=== PATIENT | female | born 1940 | race Caucasian/White ===

== ENCOUNTER 2017-04-21 06:44 | Inpatient (IN) | payer OTHER ==
[2017-04-21] MEDS ORDERED: LORazepam 2 MG/ML INJ IVP ONE (06:56)
[2017-04-21] MEDS ORDERED: LORazepam 2 MG/ML INJ ONE (06:57)
[2017-04-21] MEDS ORDERED: OLANZapine 10 MG/2 ML VIAL ONE (07:00)
[2017-04-21] MEDS ORDERED: OLANZapine 10 MG/2 ML VIAL IM ONE (07:04)
[2017-04-21] MEDS ORDERED: NS 1,000 ML IV ONE (07:04)
--- NOTE | 2017-04-21 07:08 | EDPHY ---
HPI/HX/ROS/PE/MDM Narrative: CHIEF COMPLAINT: Altered mental status HPI: The patient is a 76-year-old female with a history of giant cell arteritis. She arrives by ambulance with her following shortly there afterwards. No history is obtainable from the patient secondary to altered mental status. The patient's states that the patient has been having a psychotic episode for at least the last day. During this episode, she apparently has 3 personalities, one who is extremely agitated and one which is "robotic and helpless." She has had these episodes before and it was felt to be secondary to prednisone, although she has never been hospitalized or seen a physician for this problem. The patient's tells me that her current altered mental status secondary to prednisone, but the patient has been on prednisone since February. There has been no new medications other than medication for oral thrush, which the patient's states his Keflex. Per EMS, the patient was speaking constantly about devils on route to the hospital and was requiring restraint. REVIEW OF SYSTEMS: Aside from elements discussed in the HPI, a comprehensive 10-point review of systems was reviewed and is negative. PMH: Trying cell arteritis, history of breast cancer, history of mastectomy. SOCIAL HISTORY: . No history of alcohol or drug use. PHYSICAL EXAM: General:Patient is extremely agitated requiring restraint by 2 nurses. She is alternately attempting to bite the nurses followed by periods of tongue rolling and yelling gibberish. ENT:Eyes are normal to inspection. ENT inspection normal. Neck: Normal inspection. Full range of motion. Respiratory:No respiratory distress. Breath sounds normal bilaterally. Cardiovascular: Regular rate and rhythm. Strong peripheral pulses. Normal cap refill. Abdomen:The abdomen is nontender to palpation. There are no peritoneal signs. There are normal bowel sounds. Back: Normal to inspection. No tenderness to palpation. Skin: Normal color. No rash. Warm and dry. Extremities: Normal appearance. Full range of motion. Neuro: No gross motor deficits. ED Course: CTH: Negative for acute disease. Accepted by hosptalist service ([facility]) for admission. VSS stable on three re-evaluations. MDM: This patient presents with acute psychosis. Her suggests prednisone as the cause, and I think this is the most likely etiology, but I am concerned that the patient has been on this medication for two months, so it seems unusual this would start now. I suspect the patient likely has an undiagnosed mental health issue that may be precipitated by the medication. Her workup is negative except for WBC which is elevated. There is no history of infectious symptoms. UA is still pending. This may be secondary to agitation. The patient was treated with 5mg IM Zyprexa, and quickly resolved. I think CVA, tumor, hyponatremia, meningitis unlikely. This could represent atypical seizure, or mental health disorder. - Data Points Laboratory Results: Laboratory Results 04/21/17 07:05 04/21/17 07:05 04/21/17 04/21/17 04/21/17 08:30 07:05 07:05 WBC 20.15 10^3/uL H 10^3/uL (3.80-9.50) RBC 3.96 10^6/uL L 10^6/uL (4.18-5.33) Hgb 12.4 g/dL L g/dL (12.6-16.3) Hct 35.9 % L % (38.0-47.0) MCV 90.7 fL fL (81.5-99.8) MCH 31.3 pg pg (27.9-34.1) MCHC 34.5 g/dL g/dL (32.4-36.7) RDW 16.6 % H % (11.5-15.2) Plt Count 242 10^3/uL 10^3/uL (150-400) MPV 8.8 fL fL (8.7-11.7) Neut % (Auto) Not Reported Lymph % (Auto) Not Reported Gray % (Auto) Not Reported Eos % (Auto) Not Reported Baso % (Auto) Not Reported Nucleat RBC Rel Count 0.1 % % (0.0-0.2) Absolute Neuts (auto) Not Reported Absolute Lymphs (auto) Not Reported Absolute Monos (auto) Not Reported Absolute Eos (auto) Not Reported Absolute Basos (auto) Not Reported Absolute Nucleated RBC 0.02 10^3/uL H 10^3/uL (0-0.01) Immature Gran % Not Reported Seg Neutrophils % 75 % % Band Neutrophils % 13 % % Lymphocytes % 7 % % Monocytes % 5 % % Immature Gran # Not Reported Absolute Seg Neuts 15.11 10^/uL H 10^/uL (1.70-6.50) Absolute Band Neuts 2.62 10^3/uL H 10^3/uL (0.00-0.70) Absolute Lymphocytes 1.41 10^3/uL 10^3/uL (1.00-3.00) Absolute Monocytes 1.01 10^3/uL H 10^3/uL (0.30-0.80) Platelet Estimate ADEQUATE (ADEQ) Polychromasia 1+ H Sodium 130 mEq/L L mEq/L (134-144) Potassium 4.0 mEq/L mEq/L (3.5-5.2) Chloride 95 mEq/L L mEq/L (97-110) Carbon Dioxide 27 mEq/l mEq/l (22-31) Anion Gap 8 mEq/L mEq/L (8-16) BUN 25 mg/dL H mg/dL (7-23) Creatinine 0.8 mg/dL mg/dL (0.6-1.0) Estimated GFR > 60 Glucose 95 mg/dL mg/dL (70-100) Calcium 9.4 mg/dL mg/dL (8.5-10.4) Total Bilirubin 0.4 mg/dL mg/dL (0.1-1.4) Conjugated Bilirubin 0.0 mg/dL mg/dL (0.0-0.5) Unconjugated Bilirubin 0.4 mg/dL mg/dL (0.0-1.1) AST 31 IU/L IU/L (14-46) ALT 57 IU/L H IU/L (9-52) Alkaline Phosphatase 56 IU/L IU/L (38-126) Creatine Kinase 44 IU/L IU/L (0-156) Troponin I 0.024 ng/mL ng/mL (0.000-0.034) Total Protein 6.1 g/dL L g/dL (6.3-8.2) Albumin 3.4 g/dL L g/dL (3.5-5.0) TSH 1.580 uIU/mL uIU/mL (0.465-4.680) Urine Color Pending Urine Appearance Pending Urine pH Pending Ur Specific [place] Pending Urine Protein Pending Urine Ketones Pending Urine Blood Pending Urine Nitrate Pending Urine Bilirubin Pending Urine Urobilinogen Pending Ur Leukocyte Esterase Pending Urine Glucose Pending Urine Opiates Screen NEGATIVE (NEGATIVE) Urine Barbiturates NEGATIVE (NEGATIVE) Ur Phencyclidine Scrn NEGATIVE (NEGATIVE) Ur Amphetamine Screen NEGATIVE (NEGATIVE) U Benzodiazepines Scrn NEGATIVE (NEGATIVE) Urine Cocaine Screen NEGATIVE (NEGATIVE) U Marijuana (THC) Screen NEGATIVE (NEGATIVE) Medications Given: Discontinued Medications Sodium Chloride (Ns) 1,000 mls @ 0 mls/hr IV EDNOW ONE; Wide Open PRN Reason: Protocol Stop: 04/21/17 07:05 Last Admin: 04/21/17 07:32 Dose: 1,000 mls Lorazepam (Ativan Injection) 1 mg IVP EDNOW ONE Stop: 04/21/17 06:57 Last Admin: 04/21/17 06:56 Dose: 1 mg Olanzapine (Zyprexa Im Injection) 5 mg IM EDNOW ONE Stop: 04/21/17 07:05 Last Admin: 04/21/17 07:07 Dose: 5 mg General Time Seen by Provider: 04/21/17 06:58 Initial Vital Signs: Initial Vital Signs Temperature (C) 36.9 C 04/21/17 07:00 Heart Rate 89 04/21/17 07:00 Respiratory Rate 26 H 04/21/17 07:00 Blood Pressure 165/51 H 04/21/17 07:00 O2 Sat (%) 99 04/21/17 07:00 O2 Delivery Mode Room Air Allergies/Adverse Reactions: codeine Allergy (Verified 04/21/17 07:27) lisinopril Allergy (Verified 04/21/17 07:27) Sulfa (Sulfonamide Antibiotics) Allergy (Verified 04/21/17 07:27) ANY NARCOTICS Allergy (Uncoded 04/18/11 12:19) Home Medications: Medication Instructions Recorded ATENOLOL [Atenolol 50 mg] 0 mg PO DAILY 04/18/11 Losartan Potassium 0 mg PO 04/18/11 AMITRIPTYLINE HCL 04/21/17 Atorvastatin Calcium 04/21/17 Prednisone 04/21/17 Departure - Departure Referrals: JIAN RICKS [Other] - As per Instructions
[2017-04-21 07:23] LABS: ABSOLUTE NRBC COUNT 0.02 10^3/uL (0-0.01); ADD DIFF? YES; ADD MORPH? NO; ADD SCAN? NO; ATYPICAL LYMPHOCYTE FLAG 10 (0-99); FRAGMENT RBC FLAG 0 (0-99); HEMATOCRIT 35.9 % (38.0-47.0); HEMOGLOBIN 12.4 g/dL (12.6-16.3); LEFT SHIFT FLG 50 (0-99); LIPEMIA HEMOLYSIS FLAG 90 (0-99); MEAN CELL HEMOGLOBIN 31.3 pg (27.9-34.1); MEAN CELL HEMOGLOBIN CONCENTR. 34.5 g/dL (32.4-36.7); MEAN CELL VOLUME 90.7 fL (81.5-99.8); MEAN PLATELET VOLUME 8.8 fL (8.7-11.7); NRBC-AUTO% 0.1 % (0.0-0.2); PLATELET CLUMPS FLAG 0 (0-99); PLATELET COUNT 242 10^3/uL (150-400); RED BLOOD CELL COUNT 3.96 10^6/uL (4.18-5.33); RED CELL DISTRIBUTION WIDTH 16.6 % (11.5-15.2)
[2017-04-21 07:35] LABS: ALANINE AMINOTRANSFERASE 57 IU/L (9-52); ALBUMIN 3.4 g/dL (3.5-5.0); ALKALINE PHOSPHATASE 56 IU/L (38-126); ANION GAP 8 mEq/L (8-16); ASPARTATE AMINOTRANSFERASE 31 IU/L (14-46); BILIRUBIN,TOTAL 0.4 mg/dL (0.1-1.4); BILIRUBIN-UNCONJUGATED 0.4 mg/dL (0.0-1.1); CALCIUM 9.4 mg/dL (8.5-10.4); CARBON DIOXIDE 27 mEq/l (22-31); CHLORIDE 95 mEq/L (97-110); CREATININE 0.8 mg/dL (0.6-1.0); GLOMERULAR FILTRATION RATE > 60; GLUCOSE 95 mg/dL (70-100); SODIUM 130 mEq/L (134-144); TOTAL PROTEIN 6.1 g/dL (6.3-8.2)
[2017-04-21 07:47] LABS: TROPONIN I 0.024 ng/mL (0.000-0.034)
[2017-04-21 07:48] LABS: PLATELET ESTIMATE ADEQUATE (ADEQ); POLYCHROMASIA 1+
[2017-04-21 09:12] LABS: COLOR PALE YELLOW; LEUKOCYTE ESTERASE,URINE NEGATIVE (NEGATIVE); NITRITE,URINE NEGATIVE (NEGATIVE)
[2017-04-21 09:20] LABS: BACTERIA TRACE /hpf (NONE SEEN); RBC,URINE 15-25 /hpf (0-3)
[2017-04-21] MEDS ORDERED: ONDANSETRON DISINTEGRATING 4 MG TAB PO PRN (12:29)
[2017-04-21] MEDS ORDERED: ONDANSETRON 4 MG/2 ML VIAL IVP PRN (12:29)
[2017-04-21] MEDS ORDERED: OLANZapine 5 MG TAB PO PRN (13:52)
[2017-04-21] MEDS ORDERED: OLANZapine 10 MG/2 ML VIAL IV PRN (13:54)
--- NOTE | 2017-04-21 14:14 | GHP ---
[f rep st] HISTORY AND PHYSICAL DATE OF ADMISSION: 04/21/2017 CHIEF COMPLAINT: Altered mental status. HISTORY OF PRESENT ILLNESS: The patient is a 76-year-old white female, who was in good health until a couple of months ago when she began getting severe headaches. She was diagnosed with giant cell arteritis by temporal artery biopsy on approximately March 08. She was treated with prednisone 60 mg daily for most of the month of March (total of 28 days). During that time, her sleep became somewhat disrupted. She would wake up every 2 or 3 hours, and get up and eat something. Her appetite increased. She would nap during the day. She continued to be able to function at her usual high level. She did have rapid resolution of her symptoms once the prednisone was started, and her reports that her CRP, which was elevated, returned to normal fairly quickly. About 10 days ago, she switched from 60 mg daily down to 50 mg daily. Since that time, she has been having brief attacks of altered mental status characterized by 10 or 15 minutes where she appeared to be hallucinating, saying things like "something is trying to control me." She would fight back against these forces and say things like "you don't know what this is, you can' t understand this," while describing this to her . She would ask her , "is that real or is that not real?" Then, she would be completely lucid in between these episodes. Her describes this as a switch going on and off, "like a [place] thing." She actually would get a little bit agitated and anxious prior to the onset of these symptoms, but they would often disappear very rapidly for no obvious reason. She would often go 1 or 2 days between episodes when they first started 10 days ago. She did not have any episodes at all 2 days ago, but then yesterday had 3 episodes, each lasting in the 10-20 minute range. Her had been giving her Tylenol PM to help her sleep at night, and he discontinued that 3 days ago. Then, this morning at 4:30 a.m., he heard her calling and found her in the family room wedged between a recliner and the wall. He was able to move her to the sofa, but while doing so, she had "one of these sessions." She was hitting him and much more agitated than she had been in the past. This episode did not resolve quickly and after 45 minutes, he called 911. The episode persisted throughout the ambulance ride and only resolved after she received Zyprexa in the emergency department. This episode today then lasted over 2 hours. Her also reports that since going down to the 50 mg dose over the past 10 days, she is unable to shower or dress herself, and often does not know how to eat or wash her hands unless he cues her and tells her what to do. He will tell her to turn the water on and grab some soap, and then rub her hands like this. When eating, she will stare at her food, and he will instruct her to slat pickler a utensil and eat, and then she is able to do so. He describes, over the last 10 days, 3 different personalities. The first one is normal. The second personality is "a psychotic session with a wicked laugh," and the third personality is a "helpless robot" where he can instruct her to raise her arms so that he can help her put a coat on, but she just stands there with the arms raised until he gives her the instruction. He denies that she has any prior history of depression, anxiety, or any other mental status issues in the past. At her baseline, she can walk and take care of all of her own needs. Her says that they regularly go for 45-60 minute walks for exercise without any problem. She has been struggling with thrush for the past couple of weeks and was treated with nystatin mouthwash, but that was not working. Several days ago, she was told to take a fluconazole tablet and repeat it after 48 hours if necessary. She took her first dose 3 days ago and her second dose yesterday. The thrush appears to have cleared. PAST MEDICAL HISTORY: 1. Hypertension. 2. Breast cancer, status post mastectomy 2 years ago. 3. Hyperlipidemia. MEDICATIONS: Amlodipine 2.5 mg 3 times daily, prednisone 50 mg daily, anastrozole 1 mg daily, aspirin 81 mg daily, atorvastatin 10 mg daily, losartan 100 mg daily, fluconazole 150 mg twice in the last few days as outlined above, but this is not something she has been taking regularly. SOCIAL HISTORY: She lives at home with her . They have a son who lives with his family in [place]. She does not smoke. She rarely drinks alcohol. She goes for 45-50 minute walks daily when healthy. FAMILY HISTORY: Her mother at an advanced age. Her father after a heart condition that sounds like it was secondary to some sort of trauma at a relatively young age. REVIEW OF SYSTEMS: This is unobtainable from the patient, as she is not completely coherent at the time of my exam. PHYSICAL EXAMINATION: GENERAL: She is a well-developed white female, who appears her stated age, lying comfortably in bed with her eyes closed. She easily opens them when I ask her name and engages in conversation. She is oriented to location (hospital), date, month, and year. She tells me she thinks it is Saturday (in fact, it is Saturday), but other than that seems oriented. She does not know how she got to the hospital and does not remember the events of this morning. She is able to tell me her blood pressure medications and is able to tell me she should be at [facility] (which is where she has insurance), but in the next sentence tells me when I ask if she is having any pain, "no, but I have some aching because I was just fighting all of them off." VITAL SIGNS: Blood pressure was 165/51 on presentation, but now 131/82. Heart rate was 89 when she presented to the ER, but now is 56. Oxygen saturation is 99% on room air. She is afebrile. HEENT: Eyes: Pupils are pinpoint. She follows directions, and her extraocular muscles are intact. Throat, mouth, and oropharynx are benign. There is no evidence of thrush. There is no erythema in the back of the throat. NECK: Supple, without adenopathy. She easily moves her neck in all directions, without any pain. Carotids are 2+ bilaterally. LUNGS: Clear. BACK: No CVA tenderness. HEART: Regular, without murmur. ABDOMEN: Soft and nontender, without masses. Normoactive bowel sounds. EXTREMITIES: 2+ pitting edema to the mid [place]ehan bilaterally. Her skin is warm and dry. Her feet have no open sores. She has 2 + pulses in her feet bilaterally. NEUROLOGIC: She is alert and reasonably oriented as above, although she does still talk about some sort of "them" who appear to be assaulting or bothering her. 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 DATABASE: Head CT scan shows extensive periventricular and deep hemispheric white matter changes, and some stable generalized atrophy compared to a few years ago, but no acute abnormality. Her WBC is elevated at 20,000, hemoglobin 12.4, hematocrit 35.9, and platelets are 242,000. Her sodium is low at 130, but her other electrolytes are normal. Her creatinine is normal at 0.8, and glucose is 95. Urinalysis shows 15-25 RBCs, 3-5 WBCs, trace bacteria, and 2+ glucose. Urine toxicology screen is negative. IMPRESSION: 1. Altered mental status, likely secondary to several weeks of poor sleep combined with prednisone. Recent Diflucan might be playing a small role, but she was clearly having episodes of delirium or psychosis before the Diflucan was started, and she has only taken 2 doses of Diflucan. There is no obvious source for infection to explain her altered mental status, and her CT scan is negative. She does not have meningeal symptoms that would suggest any sort of neurologic infection. The prednisone could be masking an infection. If the symptoms continue despite reduction of the prednisone, we could try to consider an MRI to help rule out HSV encephalitis or another type of encephalitis. Right now, I doubt she would cooperate with an MRI, and I do not have any great reason to believe that in the absence of fever or rapid severe worsening, that this is an infectious etiology. 2. Elevated white blood cell count, probably secondary to high-dose prednisone for the last several weeks. 3. Hyponatremia, mild, and I do not think this is clinically contributing to her current picture. I suspect it is secondary to prednisone and stress. 4. Recent oral thrush. A thorough oropharyngeal exam today by me did not reveal any thrush whatsoever. There is certainly no reason to continue the Diflucan. 5. Giant cell arteritis, diagnosed about 6 weeks ago. At this point, it would be prudent to reduce the prednisone more rapidly. She had her last dose yesterday of 50 mg. I am inclined to hold it and make a day-by-day decision about resuming it. When resuming, I would probably choose a 20 mg dose and see if she tolerates a relatively rapid taper after that. Certainly, if the headache returns or if inflammatory markers increase, she could be treated with methotrexate or another immune system modulator. At this point, it does not appear that high-dose prednisone is a reasonable option going forward. 6. DNR status. She is full code. 7. Insurance status. She is a [facility] patient, and it may be that if she requires continued hospitalization, they will want her transferred to their hospital tomorrow. 8. History of breast cancer, on anastrozole. I will continue that daily medication for now. 9. History of hypertension. She is not hypertensive now. I will leave an order in the chart for some p.r.n. losartan, since she has apparently tolerated that medicine for some time. I will hold the amlodipine unless we really need an additional med, since she does have some fairly significant edema. 10. Hematuria. Mild. I do not think this is contributing to her current altered mental status. Will order urine culture. Suggest outpatient follow-up if this persists. /[id number]/MODL MTDD
[2017-04-21] MEDS: ACETAMINOPHEN 325 MG TAB PO PRN (23:31)
[2017-04-22] MEDS: cefTRIAXone 2 GM in D5W 50 ML IV SCH ×2 (01:04→08:50)
[2017-04-22 05:31] LABS: ABSOLUTE NRBC COUNT 0.07 10^3/uL (0-0.01); ADD DIFF? YES; ADD MORPH? NO; ADD SCAN? NO; ATYPICAL LYMPHOCYTE FLAG 0 (0-99); FRAGMENT RBC FLAG 0 (0-99); HEMATOCRIT 37.8 % (38.0-47.0); HEMOGLOBIN 12.9 g/dL (12.6-16.3); LEFT SHIFT FLG 40 (0-99); LIPEMIA HEMOLYSIS FLAG 90 (0-99); MEAN CELL HEMOGLOBIN 31.6 pg (27.9-34.1); MEAN CELL HEMOGLOBIN CONCENTR. 34.1 g/dL (32.4-36.7); MEAN CELL VOLUME 92.6 fL (81.5-99.8); MEAN PLATELET VOLUME 9.3 fL (8.7-11.7); NRBC-AUTO% 0.4 % (0.0-0.2); PLATELET CLUMPS FLAG 0 (0-99); PLATELET COUNT 224 10^3/uL (150-400); RED BLOOD CELL COUNT 4.08 10^6/uL (4.18-5.33); RED CELL DISTRIBUTION WIDTH 17.6 % (11.5-15.2)
[2017-04-22 05:58] LABS: ALANINE AMINOTRANSFERASE 49 IU/L (9-52); ALBUMIN 2.9 g/dL (3.5-5.0); ALKALINE PHOSPHATASE 57 IU/L (38-126); ANION GAP 8 mEq/L (8-16); ASPARTATE AMINOTRANSFERASE 27 IU/L (14-46); BILIRUBIN,TOTAL 0.5 mg/dL (0.1-1.4); CALCIUM 8.4 mg/dL (8.5-10.4); CARBON DIOXIDE 25 mEq/l (22-31); CHLORIDE 96 mEq/L (97-110); GLOMERULAR FILTRATION RATE 54; GLUCOSE 101 mg/dL (70-100); POTASSIUM 3.8 mEq/L (3.5-5.2); SODIUM 129 mEq/L (134-144); TOTAL PROTEIN 5.1 g/dL (6.3-8.2)
[2017-04-22 06:14] LABS: SEDIMENTATION RATE 10 MM/HR (0-30)
[2017-04-22 06:26] LABS: PLATELET ESTIMATE ADEQUATE (ADEQ)
[2017-04-22 06:29] LABS: POLYCHROMASIA 1+
[2017-04-22] MEDS: LOSARTAN POTASSIUM 50 MG TAB PO SCH (08:49)
[2017-04-22] MEDS: ATORVASTATIN CALCIUM 10 MG TAB PO SCH (08:49)
[2017-04-22] MEDS: ANASTROZOLE 1 MG TAB PO SCH (08:49)
[2017-04-22] MEDS: ACETAMINOPHEN 325 MG TAB PO PRN ×3 (08:50→20:08)
[2017-04-22] MEDS: ASPIRIN EC 81 MG TAB PO SCH (09:25)
[2017-04-22] MEDS: ENOXAPARIN 30 MG/0.3 ML SYR SC SCH (09:51)
[2017-04-22] MEDS: D5W IV SCH ×3 (10:29→21:14)
[2017-04-22] MEDS: ACYCLOVIR IV SCH ×3 (10:29→21:14)
[2017-04-22] MEDS: AMPICILLIN SODIUM 2 GM in NS 100 ML IV SCH ×2 (10:31→16:08)
[2017-04-22 10:35] LABS: INR 1.05 (0.83-1.16); PROTIME(PATIENT) 13.6 SEC (12.0-15.0)
--- NOTE | 2017-04-22 11:27 | HOSPPROG ---
Hospitalist Progress Note Assessment/Plan: 76-year-old with a history of doses of temporal arteritis is admitted with altered mental status. She has been on high dose steroid for 6 weeks and altered mental status with the last 10 days # altered mental status, fever over night. This is concerning for a central process possible malignancy or infectious. Discussed with Dr. Sam. * LP * MRI with and without * Continue antibiotic antivirals until infection ruled out with LP * Continue supportive care * Await blood cultures # history of breast cancer, she is 2 years out and new presumed remission. Check MRI to rule out malignancy # temporal arteritis currently on prednisone. Patient is immune compromise due to this and will continue lower dose, she could likely tolerate 40 mg daily. * Repeat sed rate * Decrease to 40 mg daily tomorrow # hypertension, stable # dyslipidemia # DVT prophylaxis, hold Lovenox today for LP. disposition: pt with fever and AMS. will need greater than 2 midnight for eval and treatment Subjective: Patient confused when I saw her however her symptoms wax and wane she was more oriented later on. She denies any pain, no cough no urinary symptoms Objective: Vital Signs Temp Pulse Resp BP Pulse Ox 38.2 C 113 H 16 126/96 H 91 L 04/22/17 07:54 04/22/17 07:54 04/22/17 07:54 04/22/17 07:54 04/22/17 07:54 Laboratory Results 04/22/17 04:40 04/22/17 04:40 04/21/17 04/22/17 04/23/17 05:59 05:59 05:59 Intake Total 1640 Output Total 2100 Balance -460 PT 13.6 SEC (12.0-15.0) 04/22/17 10:10 INR 1.05 (0.83-1.16) 04/22/17 10:10 - Physical Exam Constitutional: appears nourished, not in pain Eyes: PERRL, EOMI Ears, Nose, Mouth, Throat: moist mucous membranes Cardiovascular: regular rate and rhythym, no murmur, rub, or gallop Respiratory: no respiratory distress, no rales or rhonchi, clear to auscultation Gastrointestinal: normoactive bowel sounds, soft, non-tender abdomen Genitourinary: no bladder fullness Skin: warm, no rashes or abrasions Neurologic: No AAOx3 Psychiatric: anxious ICD10 Worksheet Patient Problems: Problems Problem Status Onset Fever Acute
--- NOTE | 2017-04-22 11:39 | GCON ---
[f rep st] CONSULTATION INFECTIOUS DISEASES CONSULTATION DATE OF CONSULTATION: 04/22/2017 REFERRING PHYSICIAN: Shelbi Briones MD REASON FOR CONSULTATION: Fever and altered mental status. HISTORY OF PRESENT ILLNESS: The patient is a 76-year-old female with a recent diagnosis of temporal arteritis, who has been on high-dose prednisone for approximately 6 weeks, whom I have seeing in consultation for fever and altered mental status. The patient is a patient in the [facility] and developed pain over her temporal regions, which ultimately was diagnosed as temporal arteritis by biopsy. She was started on prednisone 60 mg orally daily approximately 6 weeks ago. Approximately 10 days ago, the prednisone was tapered to 50 mg orally daily. Her notes that her C-reactive protein had decreased significantly with prednisone therapy. Around the time her prednisone was tapered to 50 mg, the patient developed intermittent episodes of confusion and agitation. Her describes her as having periods where she would be confused with paranoid ideations. She thought people were trying to get her and that she had to fight against their forces, noting that she could not be understood. These initially would last several minutes and then resolve spontaneously with normal lucidity in the interim. These became progressively longer in duration over the last 10 days. Yesterday, the patient had an episode where she became agitated and combative, with this lasting approximately 12 hours. Her describes her as having 3 different personalities during the 10-day period: First personality is her normal personality; second is the psychotic with delusions personality, and the third is a personality where she appears more helpless and weak with difficulty completing activities of daily living. He does not note any fever during these episodes. The patient received Zyprexa yesterday at time of presentation with resolution of agitation. Overnight, patient developed fever with a peak temperature of 39.4. She describes having chills associated with her fever. No other notable symptoms present. No recent travel. No ill contacts. There is a pet cockatiel at home. No illness in the bird. No other unusual exposures. No exposure to unpasteurized dairy products. She does eat deli meats. This morning, patient was started empirically on acyclovir and ceftriaxone based on fever. She is alert and oriented this a.m., although somewhat slow in her responses. She recently was diagnosed with oral thrush while on steroids and treated initially with nystatin followed by fluconazole. Changes in mental status were present prior to initiation of fluconazole. No known tuberculosis exposures. No recent dental problems or dental work. Given the above findings, I am now asked to assist in her ongoing management. PAST MEDICAL HISTORY: Temporal arteritis as above, breast cancer treated surgically with diagnosis 2 years ago, hypertension, hyperlipidemia, oral candidiasis. PAST SURGICAL HISTORY: Mastectomy 2 years ago. CURRENT MEDICATIONS: Acyclovir 500 mg IV q.8 hours, ampicillin 2 g IV q.4 hours , Arimidex 1 mg p.o. daily, aspirin 81 mg p.o. daily, Lipitor 10 mg p.o. daily, ceftriaxone 2 g IV daily, Lovenox 40 mg subcu daily, Cozaar 100 mg p.o. daily, Zyprexa as needed. ALLERGIES: Sulfonamides, lisinopril, narcotics associated with delirium. SOCIAL HISTORY: Patient does not smoke, drink significant alcohol, or use drugs. No recent travel. Animal exposures as above. does not note any mosquito exposure, and patient was tested for West Nile virus with onset of headache 6 weeks ago, which was negative. FAMILY HISTORY: Coronary artery disease. REVIEW OF SYSTEMS: Outside that noted in the HPI, remainder of a 10-system review is unremarkable. No seizure activity. PHYSICAL EXAMINATION: VITAL SIGNS: Temperature maximum 39.4, temperature current 38.2, heart rate 113, respiratory rate 16, blood pressure 126/96, oxygen saturation 91% on room air. GENERAL: Patient has a flat affect with slowed responses. HEENT: There is no scleral icterus, conjunctival injection, or conjunctival petechiae. Oropharynx shows no thrush. Mucous membranes are slightly dry. Dentition is in fair repair. There is no nasal discharge. There is no tenderness over the temporal regions. NECK: Supple without lymphadenopathy or palpable thyromegaly. CHEST: Clear to auscultation bilaterally without adventitious sounds. Respiratory effort is normal. CARDIOVASCULAR: Tachycardic with irregular rhythm. Short systolic murmur heard 2/6 over left upper sternal border. ABDOMEN: Soft, nontender, mildly distended. No palpable organomegaly. Bowel sounds are present. MUSCULOSKELETAL: There is 2+ edema of the lower extremities. SKIN: There are few abraded areas over the lower extremities. No stigmata of endocarditis. Skin is warm and dry to touch. NEUROLOGIC: Patient is oriented times person, place, month and year. She is able to recognize her without difficulty. She is able to do simple math. Cranial nerves 2-12 are grossly intact. Sensation is grossly intact. The patient shows 4/5 strength in the lower extremities bilaterally. LYMPHATICS: No cervical or supraclavicular nodes palpable. LABORATORY DATA: White blood cell count 16.4, hematocrit 37.8, platelets 224, neutrophils 74%, bands 9%, ESR 10, C-reactive protein less than 5.0, creatinine 1.0, AST 27, ALT 49, alkaline phosphatase 57, bilirubin 0.5, CPK 44, TSH 1.6. Urinalysis shows 3-5 white blood cells and 15-25 red blood cells. Urine drug screen is negative. IMAGING: Chest x-ray shows possibility of 2 nodules in the left upper lobe without evidence of pneumonia. Head CT scan without IV contrast shows periventricular and deep white matter change. IMPRESSION: 1. Fever and altered mental status with ongoing immunosuppression for temporal arteritis: Broad differential diagnosis for current presenting signs which are subacute in nature. Infectious etiologies of encephalitis such as herpes simplex virus or varicella-zoster virus are of consideration. Bacterial meningitis seems less likely based on time course and clinical findings, although listeria can present with encephalitis and subacute presentation. West Nile virus would be other potential viral etiology. Tuberculosis or fungi could present in similar fashion, although no discrete exposures. PML would also be consideration with high-dose steroids. Creutzfeldt-Bill also in the differential diagnosis, although presentation less classic. Noninfectious etiologies such as carcinomatosis meningitis or paraneoplastic syndrome also in the differential diagnosis. Alondra encephalopathy seems unlikely in the setting of high-dose prednisone use. It is also possible the patient has steroid-induced psychosis and her fever is of other etiology. Less likely would be consideration of Chlamydia psittaci contributing to encephalitis, which is a rare disease entity. RECOMMENDATIONS: 1. Agree with plans for lumbar puncture to further define. 2. Agree with plans for MRI to further define. 3. Agree with empiric ceftriaxone and acyclovir pending CSF; if CSF were to suggest bacterial process, would need to increase ceftriaxone to q.12 hour dosing. 4. Begin ampicillin 2 g IV q.4 hours pending CSF findings. 5. CSF studies for cell count, Gram stain/culture, glucose, and protein. 6. CSF for cytology. 7. CSF for HSV/VZV PCR, West Nile virus antibodies, DYLAN virus PCR, and cryptococcus antigen. 8. Serum West Nile virus antibodies. 9. Flu swab by PCR. 10. Follow up blood cultures, CSF studies, and MRI as available. Thank you for this consultation. We will continue to follow the patient with you. /[id number]/MODL MTDD
[2017-04-22] MEDS ORDERED: LORazepam 2 MG/ML INJ IVP ONE (11:45)
[2017-04-22] MEDS ORDERED: NA BICARBONATE 50 MEQ/50 ML VIAL ONE (13:21)
[2017-04-22] MEDS ORDERED: LIDOCAINE 1% 300 MG/30 ML SDV ONE (13:21)
--- NOTE | 2017-04-22 13:50 | ASMTCMCOM ---
CM Note CM Note Notes: Patient admitted with altered mental status. She has a recent hx of giant cell arteritis with 28 days of Prednison tx. According to her , she's been having 10 days of altered mental status characterized by periods of psychosis, normalcy, and crippling disability. She is normally physically and mentally sound and independent. Brain MRI and lumbar puncture ordered and pending. ID also following. Discharge needs are TBD; CM will follow. Date Signed: 04/22/2017 01:49 PM Electronically Signed By:Annia Lomeli RN
[2017-04-22 15:18] LABS: PROTEIN, CSF 80 mg/dL (12-60)
[2017-04-22 15:38] LABS: CSF APPEARANCE CLEAR (CLEAR); CSF COLOR COLORLESS (COLORLESS); CSF SUPERNATANT COLORLESS (COLORLESS); WBC, CSF 3 /mm3 (0-5)
[2017-04-22] MEDS: NS 1,000 ML IV SCH (16:34)
[2017-04-22] MEDS: OLANZapine 2.5 MG TAB PO PRN ×2 (17:05→23:59)
[2017-04-22] MEDS ORDERED: GADOBUTROL 10 ML VIAL IVP ONE (17:44)
--- NOTE | 2017-04-22 18:38 | PCMIDPN ---
Assessment/Plan: Addendum to initial consultation: * CSF findings not consistent with bacterial meningitis. Will discontinue ampicillin. Continue acyclovir pending CSF HSV PCR. Will continue ceftriaxone pending blood cultures. 04/22/17 18:35 Objective: Vital Signs Temp Pulse Resp BP Pulse Ox 37.3 C 101 H 16 105/69 94 04/22/17 15:01 04/22/17 15:01 04/22/17 15:01 04/22/17 15:01 04/22/17 15:01 04/21/17 04/22/17 04/23/17 05:59 05:59 05:59 Intake Total 570 Balance 570 ESR 10 MM/HR (0-30) 04/22/17 04:40 C-Reactive Protein < 5.0 mg/L (<10.0) 04/21/17 07:05 Laboratory Tests 04/22/17 09:00 CSF WBC 3 CSF RBC 3 H CSF Glucose 59 CSF Total Protein 80 H ICD10 Worksheet Patient Problems: Problems Problem Status Onset Fever Acute
[2017-04-22] MEDS ORDERED: traZODone 50 MG TAB PO PRN (20:18)
[2017-04-23] MEDS: ACETAMINOPHEN 325 MG TAB PO PRN
[2017-04-23] MEDS: D5W IV SCH ×3 (05:11→21:41)
[2017-04-23] MEDS: ACYCLOVIR IV SCH ×3 (05:11→21:41)
[2017-04-23] MEDS: ASPIRIN EC 81 MG TAB PO SCH (08:39)
[2017-04-23] MEDS: LOSARTAN POTASSIUM 50 MG TAB PO SCH (08:48)
[2017-04-23] MEDS: ATORVASTATIN CALCIUM 10 MG TAB PO SCH (08:48)
[2017-04-23] MEDS: ANASTROZOLE 1 MG TAB PO SCH (08:51)
[2017-04-23 09:04] LABS: ADD DIFF? NO; ADD MORPH? NO; ADD SCAN? NO; ATYPICAL LYMPHOCYTE FLAG 0 (0-99); FRAGMENT RBC FLAG 0 (0-99); HEMATOCRIT 37.7 % (38.0-47.0); HEMOGLOBIN 13.2 g/dL (12.6-16.3); LEFT SHIFT FLG 20 (0-99); LIPEMIA HEMOLYSIS FLAG 90 (0-99); MEAN CELL VOLUME 91.5 fL (81.5-99.8); PLATELET CLUMPS FLAG 0 (0-99); PLATELET COUNT 194 10^3/uL (150-400); RED BLOOD CELL COUNT 4.12 10^6/uL (4.18-5.33); RED CELL DISTRIBUTION WIDTH 17.6 % (11.5-15.2)
[2017-04-23 09:12] LABS: ALANINE AMINOTRANSFERASE 51 IU/L (9-52); ALBUMIN 2.6 g/dL (3.5-5.0); ALKALINE PHOSPHATASE 64 IU/L (38-126); ANION GAP 6 mEq/L (8-16); ASPARTATE AMINOTRANSFERASE 30 IU/L (14-46); CARBON DIOXIDE 25 mEq/l (22-31); CHLORIDE 98 mEq/L (97-110); CREATININE 0.8 mg/dL (0.6-1.0); GLOMERULAR FILTRATION RATE > 60; GLUCOSE 72 mg/dL (70-100); POTASSIUM 3.4 mEq/L (3.5-5.2); SODIUM 129 mEq/L (134-144)
[2017-04-23] MEDS: cefTRIAXone 2 GM in D5W 50 ML IV SCH (11:00)
--- NOTE | 2017-04-23 11:36 | PCMIDPN ---
Assessment/Plan: Assessment/Plan: 1. Fever, with Altered Mental status: - s/p LP. CSF with only 3 cells but elevated protein. - Off prednisone since saturday.- - Multiple CSf studies pending. - blood cx ngtd at 24 hours - currently on Ceftriaxone and Acyclovir. - If blood cx neg at 48 hours, likely can d/c ceftriaxone. -reviewed results with and plan of care - care coordinated with hospitalist team. 2. Recent diagnosis of Temporal arteritis -Prednisone on hold. hospitalist will coordiate further with her primary cupola worker from [place]. Meds ceftriaxone 2g daily acyclovir 500mg q8- Subjective: afebrile. feeling better today. less disoriented per , patient, and hospitalist. denies headache. denies sob, abd pain. Objective: Vital Signs Temp Pulse Resp BP Pulse Ox 36.8 C 106 H 20 110/68 94 04/23/17 07:57 04/23/17 07:57 04/23/17 07:57 04/23/17 08:48 04/23/17 07:57 Laboratory Results 04/23/17 08:48 04/23/17 08:48 04/22/17 04/23/17 04/24/17 05:59 05:59 05:59 Intake Total 820 Output Total 500 650 Balance 320 -650 ESR 10 MM/HR (0-30) 04/22/17 04:40 C-Reactive Protein < 5.0 mg/L (<10.0) 04/21/17 07:05 - Physical Exam General Appearance: other (tired, but is alert and answers questions when asked. ) Respiratory: lungs clear Cardiac/Chest: regular rate, rhythm Extremities: No swelling Abdomen: normal bowel sounds, non-tender, soft, No distended ICD10 Worksheet Patient Problems: Problems Problem Status Onset Fever Acute
--- NOTE | 2017-04-23 12:41 | HOSPPROG ---
Hospitalist Progress Note Assessment/Plan: 76-year-old with a history of doses of temporal arteritis is admitted with altered mental status. She has been on high dose steroid for 6 weeks and altered mental status with the last 10 days. Symptoms have improved overnight. Unclear if related to stopping the steroids Saturday or if it is the acyclovir. # altered mental status, fever over night. This is concerning for a central process possible malignancy or infectious. * LP results reviewed, no bacterial menigitis * MRI with and without is unremarkable * Continue ceftriaxone until blood cultures negative * Continue acyclovir until HSV titers negative * Unclear if this is related to steroid use. # history of breast cancer, she is 2 years out and new presumed remission. Check MRI to rule out malignancy # temporal arteritis currently on prednisone. Patient is immune compromise due to this. Discussed with DR. Loza, her event marketing assistant at [place] ([phone] ) who recommends resuming the prednisone, as there are no great other options and recommends starting at 40mg. She will see patient soon after discharge, have pt call and schedule (above #) * Repeat sed rate is low as is CRP * Decrease prednisone to 40 mg and restart, will watch for worsening mental status # hypertension, stable # dyslipidemia # DVT prophylaxis, hold Lovenox today for LP. disposition: pt with fever and AMS. will need greater than 2 midnight for eval and treatment Subjective: more alert, oriented x2 Objective: Vital Signs Temp Pulse Resp BP Pulse Ox 37.6 C 98 16 119/79 95 04/23/17 11:35 04/23/17 11:35 04/23/17 11:35 04/23/17 11:35 04/23/17 11:35 Laboratory Results 04/23/17 08:48 04/23/17 08:48 04/22/17 04/23/17 04/24/17 05:59 05:59 05:59 Intake Total 820 Output Total 500 650 Balance 320 -650 PT 13.6 SEC (12.0-15.0) 04/22/17 10:10 INR 1.05 (0.83-1.16) 04/22/17 10:10 - Physical Exam Constitutional: no apparent distress, chronically ill appearing Eyes: PERRL, EOMI Ears, Nose, Mouth, Throat: moist mucous membranes Cardiovascular: regular rate and rhythym, no murmur, rub, or gallop Respiratory: no respiratory distress, clear to auscultation Gastrointestinal: normoactive bowel sounds, soft, non-tender abdomen, no palpable masses Genitourinary: no bladder fullness Skin: warm Musculoskeletal: full muscle strength Neurologic: No AAOx3, No facial droop Psychiatric: encephalopathic ICD10 Worksheet Patient Problems: Problems Problem Status Onset Fever Acute
[2017-04-23] MEDS: predniSONE 20 MG TAB PO SCH (13:39)
[2017-04-23] MEDS: NS 1,000 ML IV SCH (19:40)
[2017-04-23 22:56] LABS: MISCELLANEOUS TEST See Comments
[2017-04-24] MEDS: ACYCLOVIR IV SCH (05:12)
[2017-04-24] MEDS: D5W IV SCH (05:12)
[2017-04-24] MEDS: NS 1,000 ML IV SCH (05:13)
[2017-04-24 05:26] LABS: ADD DIFF? NO; ADD MORPH? NO; ADD SCAN? NO; ATYPICAL LYMPHOCYTE FLAG 0 (0-99); FRAGMENT RBC FLAG 0 (0-99); HEMATOCRIT 34.9 % (38.0-47.0); HEMOGLOBIN 11.5 g/dL (12.6-16.3); LEFT SHIFT FLG 20 (0-99); LIPEMIA HEMOLYSIS FLAG 80 (0-99); MEAN CELL HEMOGLOBIN 30.9 pg (27.9-34.1); MEAN CELL VOLUME 93.8 fL (81.5-99.8); MEAN PLATELET VOLUME 9.7 fL (8.7-11.7); PLATELET CLUMPS FLAG 20 (0-99); PLATELET COUNT 186 10^3/uL (150-400); RED BLOOD CELL COUNT 3.72 10^6/uL (4.18-5.33); RED CELL DISTRIBUTION WIDTH 17.3 % (11.5-15.2)
[2017-04-24 05:36] LABS: ANION GAP 6 mEq/L (8-16); CARBON DIOXIDE 23 mEq/l (22-31); CHLORIDE 104 mEq/L (97-110); CREATININE 0.8 mg/dL (0.6-1.0); GLOMERULAR FILTRATION RATE > 60; GLUCOSE 168 mg/dL (70-100); POTASSIUM 3.7 mEq/L (3.5-5.2); SODIUM 133 mEq/L (134-144)
[2017-04-24] MEDS: ATORVASTATIN CALCIUM 10 MG TAB PO SCH (08:18)
[2017-04-24] MEDS: LOSARTAN POTASSIUM 50 MG TAB PO SCH ×3 (08:18→14:31)
[2017-04-24] MEDS: predniSONE 20 MG TAB PO SCH (08:22)
[2017-04-24] MEDS: ANASTROZOLE 1 MG TAB PO SCH (08:23)
[2017-04-24] MEDS: ASPIRIN EC 81 MG TAB PO SCH (08:23)
[2017-04-24] MEDS ORDERED: predniSONE 20 MG TAB PO SCH (12:23)
[2017-04-24] MEDS ORDERED: LOSARTAN POTASSIUM 50 MG TAB PO SCH (12:23)
--- NOTE | 2017-04-24 12:29 | HOSPPROG ---
Hospitalist Progress Note Assessment/Plan: New patient encounter 76-year-old with a history of doses of temporal arteritis is admitted with altered mental status. She has been on high dose steroid for 6 weeks and altered mental status with the last 10 days. Her steroids were held for 2 days and she had much improvement of her cognition. After discussion with the patients Planning Intern, Prednisone 40mg daily was restarted and she received her 2nd dose this morning. Today, she does not have any headache, but the patient is slightly confused, more confused than yesterday per the patients . No BAIN or neck pain. Infectious w/u has been negative to include negative CSF culture at 48hrs and negative HSV. Per ID notes, ok to stop abx at 48hrs if no growth. Will stop Rocephin. Will also stop Acyclovir. ID to see today and can cont Acyclovir if needed We will monitor overnight. If cognition is stable and no worsening encephalopathy, will continue steroids at decreased dose (30mg). If worse, will discuss possibility of stopping steroids vs lower dose with the pt's Rheum. BP has been slightly low and Cozar will be decreased. # altered mental status * LP results reviewed, no bacterial menigitis. Negative CSF culture, neg HSV * MRI with and without is unremarkable # history of breast cancer, she is 2 years out and new presumed remission. Check MRI to rule out malignancy # temporal arteritis currently on prednisone. Patient is immune compromise due to this. Discussed with DR. Loza, her lockstitcher at [place] ([phone] ) who recommends resuming the prednisone, as there are no great other options and recommends starting at 40mg. She will see patient soon after discharge, have pt call and schedule (above #) * Repeat sed rate is low as is CRP * has already received prednisone 40mg daily today, will monitor overnight per above # hypertension, decrease Cozar # dyslipidemia # DVT prophylaxis, Lovenox disposition: cont Inpatient Subjective: no BAIN. No focal deficits. Somewhat confused Objective: Vital Signs Temp Pulse Resp BP Pulse Ox 36.7 C 81 18 111/89 H 91 L 04/24/17 11:37 04/24/17 11:37 04/24/17 11:37 04/24/17 11:37 04/24/17 11:37 Laboratory Results 04/24/17 04:53 04/24/17 04:53 04/23/17 04/24/17 04/25/17 05:59 05:59 05:59 Intake Total 820 860 Output Total 500 900 Balance 320 -40 PT 13.6 SEC (12.0-15.0) 04/22/17 10:10 INR 1.05 (0.83-1.16) 04/22/17 10:10 - Physical Exam Constitutional: no apparent distress, not in pain Eyes: PERRL, EOMI Ears, Nose, Mouth, Throat: moist mucous membranes, hearing normal Cardiovascular: regular rate and rhythym, No edema Respiratory: no respiratory distress, no rales or rhonchi, clear to auscultation Gastrointestinal: normoactive bowel sounds, soft, non-tender abdomen Skin: warm Neurologic: No AAOx3 Psychiatric: encephalopathic, poor insight, poor judgement, No not encephalopathic ICD10 Worksheet Patient Problems: Problems Problem Status Onset Fever Acute
[2017-04-24] MEDS: cefTRIAXone 2 GM in D5W 50 ML IV SCH (12:40)
[2017-04-24] MEDS: ENOXAPARIN 30 MG/0.3 ML SYR SC SCH (13:17)
--- NOTE | 2017-04-24 17:21 | PCMIDPN ---
Assessment/Plan: Assessment: Delirium-intermittent likely secondary to steroid affects rather than infectious causes. Patient now on lower doses of steroid. She will need some immunosuppression due to the temporal arteritis diagnosis. At this point there is no evidence of infection in the central nervous system. Agree with discontinuing both ceftriaxone and acyclovir. Plan: 1. Discontinue all antibiotics. 2. Decide on appropriate dosing of steroid given side effect experience. 04/24/17 18:28 04/24/17 18:28 Subjective: Patient is sitting in her chair in her hospital room. She is alert and oriented. She states she feels much better since coming to the hospital. She denies any fevers or chills. Objective: Ceftriaxone # 3 Acyclovir # 3 Vital Signs Temp Pulse Resp BP Pulse Ox 36.6 C 96 18 95/73 L 91 L 04/24/17 15:53 04/24/17 15:53 04/24/17 15:53 04/24/17 15:53 04/24/17 15:53 Laboratory Results 04/24/17 04:53 04/24/17 04:53 04/23/17 04/24/17 04/25/17 05:59 05:59 05:59 Intake Total 820 860 Output Total 500 900 Balance 320 -40 ESR 10 MM/HR (0-30) 04/22/17 04:40 C-Reactive Protein < 5.0 mg/L (<10.0) 04/21/17 07:05 - Physical Exam General Appearance: WD/WN, alert, no apparent distress, non-toxic Respiratory: lungs clear, normal breath sounds, No respiratory distress Cardiac/Chest: regular rate, rhythm, No tachycardia Skin: normal color, warm/dry, No rash Neuro/Psych: alert, normal mood/affect, oriented x 3 ICD10 Worksheet Patient Problems: Problems Problem Status Onset Fever Acute
[2017-04-24 18:09] LABS: JC VIRUS COPIES < 500 copies/mL; JC VIRUS SOURCE SERUM
[2017-04-24 19:24] LABS: SPECIMEN SOURCE CSF; VARICELLA ZOSTER NEGATIVE (Negative)
[2017-04-24 20:02] LABS: INTERPRETATION See Comments; WEST NILE VIRUS IGG Negative (Negative); WEST NILE VIRUS IGM Negative (Negative)
[2017-04-25 05:38] LABS: % IMMATURE GRANULYOCYTES 1.1 % (0.0-1.1); ABSOLUTE IMMATURE GRANULOCYTES 0.16 10^3/uL (0.00-0.10); ADD DIFF? NO; ADD MORPH? NO; ADD SCAN? NO; ATYPICAL LYMPHOCYTE FLAG 0 (0-99); FRAGMENT RBC FLAG 0 (0-99); HEMOGLOBIN 10.7 g/dL (12.6-16.3); LEFT SHIFT FLG 10 (0-99); LIPEMIA HEMOLYSIS FLAG 90 (0-99); MEAN CELL HEMOGLOBIN 31.8 pg (27.9-34.1); MEAN CELL HEMOGLOBIN CONCENTR. 34.5 g/dL (32.4-36.7); MEAN PLATELET VOLUME 9.5 fL (8.7-11.7); PLATELET CLUMPS FLAG 0 (0-99); PLATELET COUNT 228 10^3/uL (150-400); RED BLOOD CELL COUNT 3.37 10^6/uL (4.18-5.33); RED CELL DISTRIBUTION WIDTH 17.2 % (11.5-15.2)
[2017-04-25 05:48] LABS: ANION GAP 5 mEq/L (8-16); CALCIUM 8.3 mg/dL (8.5-10.4); CARBON DIOXIDE 24 mEq/l (22-31); CHLORIDE 105 mEq/L (97-110); CREATININE 0.7 mg/dL (0.6-1.0); GLOMERULAR FILTRATION RATE > 60; GLUCOSE 116 mg/dL (70-100); SODIUM 134 mEq/L (134-144)
[2017-04-25 07:53] VITALS: BP 117/80; PULSE 99; RESP 20; TEMP 96.1; O2SAT 90
[2017-04-25] MEDS: ANASTROZOLE 1 MG TAB PO SCH (10:11)
[2017-04-25] MEDS: LOSARTAN POTASSIUM 50 MG TAB PO SCH (10:11)
[2017-04-25] MEDS: ATORVASTATIN CALCIUM 10 MG TAB PO SCH (10:12)
[2017-04-25] MEDS: ASPIRIN EC 81 MG TAB PO SCH (10:12)
[2017-04-25] MEDS: ENOXAPARIN 30 MG/0.3 ML SYR SC SCH (10:12)
--- NOTE | 2017-04-25 13:45 | PDDCSUM ---
Discharge Summary Discharge Summary: HPI and Hospital Course 76-year-old with a history of doses of temporal arteritis is admitted with altered mental status. She has been on high dose steroid for 6 weeks and altered mental status with the last 10 days. Her steroids were held for 2 days and she had much improvement of her cognition. After discussion with the patients Narrow Gauge Brakeman, Prednisone 40mg daily was restarted. This initially caused some confusion and it was decreased to Prednisone 30mg which she is tolerating fine. Now back to baseline. Infectious w/u has been negative to include negative CSF culture at 48hrs and negative HSV. Rocephin and Acyclovir were stopped DDX: # altered mental status * LP results reviewed, no bacterial menigitis. Negative CSF culture, neg HSV * MRI with and without is unremarkable # history of breast cancer, she is 2 years out and new presumed remission. Check MRI to rule out malignancy # temporal arteritis currently on prednisone. Patient is immune compromise due to this. Discussed with DR. Loza, her toll settlement clerk at [place] ([phone] ) who recommends resuming the prednisone per above. She will see patient soon after discharge, have pt call and schedule (above #) * Repeat sed rate is low as is CRP # hypertension, decrease Cozar. Hold amlodipine # dyslipidemia Discharge Exam: NAD AAOX3 RRR CTA B S/NT/ND NO LE EDEMA MEDS: SEE MED REC TOTAL TIME SPENT ON DISCHARGE IS 35 MINUTES
--- NOTE | 2017-04-25 15:41 | ASDISCHSUM ---
Discharge Information Plan Status:Home with No Needs Medically Cleared to Leave: Discharge Date:04/25/2017 02:30 PM CM D/C Disposition:Home, Routine, Self-Care ADT D/C Disposition:Home, Routine, Self-Care Projected Discharge Date:04/25/2017 02:30 PM Transportation at D/C:Family Discharge Delay Reason: Follow-Up Date:04/25/2017 02:30 PM Discharge Slot: Final Diagnosis: Placement Information Patient Contact Information Contact Name:MACK Relationship: Address:[address] Work Phone: [place] Phone: [facility]/Zip Code:[place] [address] Email: Financial Information Financial Class:Medicare Advantage Plans Primary Plan Desc:[employer] AYANNA LOPEZ Primary Plan Number:[id number] Secondary Plan Desc: Secondary Plan Number: Assessment Information [facility] CM Progress Note CM Note CM Note Notes: Patient admitted with altered mental status. She has a recent hx of giant cell arteritis with 28 days of Prednison tx. According to her , she's been having 10 days of altered mental status characterized by periods of psychosis, normalcy, and crippling disability. She is normally physically and mentally sound and independent. Brain MRI and lumbar puncture ordered and pending. ID also following. Discharge needs are TBD; CM will follow. Date Signed: 04/22/2017 01:49 PM Electronically Signed By:Annia Lomeli RN Intervention Information Intervention Type:*GUSMAN-Signed Date of Service:04/22/2017 11:16 AM Patient Type:Observation Staff Member:Hanh Escalera Hours: Discipline: Severity: Comment:
--- NOTE | 2017-04-25 17:41 | PCMIDPN ---
Assessment/Plan: Assessment: Delirium-intermittent likely secondary to steroid affects rather than infectious causes. Patient now on lower doses of steroid. She will need some immunosuppression due to the temporal arteritis diagnosis. At this point there is no evidence of infection in the central nervous system. Agree with discharge home off antibiotics. Plan: 1. Discharge home off antibiotics Subjective: Patient is resting comfortably. She is alert and oriented. Her is in the room and confirms that she is back to baseline. No fevers or chills. Objective: No antibiotics Vital Signs Temp Pulse Resp BP Pulse Ox 35.6 C L 99 20 117/80 90 L 04/25/17 07:50 04/25/17 07:50 04/25/17 07:50 04/25/17 10:11 04/25/17 07:50 Laboratory Results 04/25/17 05:00 04/25/17 05:00 04/24/17 04/25/17 04/26/17 05:59 05:59 05:59 Intake Total 860 Output Total 900 Balance -40 ESR 10 MM/HR (0-30) 04/22/17 04:40 C-Reactive Protein < 5.0 mg/L (<10.0) 04/21/17 07:05 - Physical Exam General Appearance: WD/WN, alert, no apparent distress, non-toxic Neuro/Psych: alert, normal mood/affect, oriented x 3 ICD10 Worksheet Patient Problems: Problems Problem Status Onset Fever Acute
== END 2017-04-25 14:30 | disposition home or self-care (01) | DRG 948 ==
LOC: EDUNIT# → F3E 11:52 → OBSVTOIN 04-22 13:39
PROVIDERS: ADMIT Internal Medicine; ATTEND Internal Medicine
PROC: 009U3ZX Drainage of Spinal Canal, Percutaneous Approach, Diagnostic (ICD-10-PCS; principal; 2017-04-22)
DX: R41.82 Altered mental status, unspecified (principal); T38.0X5A Adverse effect of glucocorticoids and synthetic analogues, initial encounter; M31.6 Other giant cell arteritis; I10 Essential (primary) hypertension; E78.5 Hyperlipidemia, unspecified; Z66 Do not resuscitate; Z85.3 Personal history of malignant neoplasm of breast
CPT/HCPCS: 80305; 87798-90; A9585; G0378; J0133; J0290; J0696; J1650; J2060